=== PATIENT | male | born 1975 | race Hispanic/Latino ===

== ENCOUNTER 2024-11-05 00:47 | Day surgery (SDC) | payer OTHER, SELFPAY ==
[2023-08-14 14:06] VITALS: BMI 29.0
[2024-03-27 10:13] VITALS: BMI 29.5
[2024-07-17 09:00] VITALS: BMI 29.6
--- NOTE | 2024-08-02 12:11 | SUR.PREOP ---
Pt call today to cancel his procedure on 08/04 due to provider availability. Pt rescheduled to 11/05 at 730.
[2024-10-29 14:44] VITALS: BMI 29.6
--- OUTSIDE RECORDS SUMMARY | 2024-11-05 00:50 | XMS_ITS | Clinical Summary ---
Author Organization [facility] [employer] [facility] Address [address] [place] [id number] Care Team Providers Care Doctor Of Chiropractic Name Role Phone Lydia Cristobal MD Primary Care Provider [phone] Allergies No known active allergies Medications No known medications Active Problems No known active problems Encounters Date Type Department Care Team Description 10/07/2024 External Device Data [facility] Provider, Abstract 10/06/2024 External Device Data [facility] Provider, Abstract 10/03/2024 External Device Data [facility] Provider, Abstract 09/22/2024 External Device Data [facility] Provider, Abstract 08/20/2024 External Device Data [facility] Provider, Abstract from Last 3 Months Immunizations Immunization Administration Dates Next Due (ADACEL/BOOSTRIX)(10 YR UP) TDAP VACCINE, 0.5ML, IM 05/27/2024 INFLUENZA VACCINE QUADRIVALENT 6 MOS UP PF IM INFLUENZA VACCINE TRIVALENT SPLIT VIRUS, (6 MOS UP), 0.5ML (PF), IM 05/27/2024 Family History Medical History Relation Name Comments Diabetes Father Relation Name Status Comments Daughter 1 Alive Daughter 2 Alive Daughter 3 Alive Father Alive Mother Alive Social History Tobacco Use Types Packs/Day Years Used Date Smoking Tobacco: Never Smokeless Tobacco: Never Tobacco Cessation:Counseling Given: Not Answered Alcohol Use Standard Drinks/Week Comments Yes 8 (1 standard drink = 0.6 oz pur e alcohol) social Sex and Gender Information Value Date Recorded Sex Assigned at Not on file Legal Sex Male 3:03 PM CDT Gender Identity Not on file Sexual Orientation Not on file Last Filed Vital Signs Vital Sign Reading Time Taken Comments Blood Pressure 110/70 04/08/2024 10:41 AM CDT Pulse 70 06/19/2023 7:39 AM HOME CARE ATTENDANT Temperature 36.6 C (97.9 F) 06/19/2023 7:39 AM HOME CARE ATTENDANT Respiratory Rate - - Oxygen Saturation 98% 06/19/2023 7:39 AM HOME CARE ATTENDANT Inhaled Oxygen Concentration - - Weight 88 kg (194 lb) 04/08/2024 10:41 AM CDT Height 172.7 cm (5' 8 ) 04/08/2024 10:41 AM CDT Body Mass Index 29.5 04/08/2024 10:41 AM CDT Plan of Treatment Upcoming Encounters Date Type Department Care Team (Late st Contact Info) Description 11/25/2024 2:00 PM CDT Office Visit [facility] [place] [address] [place] [id number] Health Maintenance Due Date Last Done Comments Pre-Diabetes and Diabetes Screening 1975 HEPATITIS B VACCINES (1 of 3 - 19+ 3-dose series) 11/09/1994 COLORECTAL SCREENING 11/09/2020 Colorectal Cancer Screening 11/09/2020 FIT-DNA Q 3 years 11/09/2020 FIT/FOBT Q 1 year 11/09/2020 Flex Sig/CT Colonography Q 5 years 11/09/2020 Preventative Visit- Commercial 07/29/2024 06/19/2023 DTAP/TDAP/TD VACCINES (2 - T d or Tdap) 05/27/2034 05/27/2024 INFLUENZA VACCINE Completed 05/27/2024, 05/01/2023 PNEUMOCOCCAL VACCINE 0-49 YEARS Aged Out No longer eligible b ased on patient's age to complete this topic Insurance ALLEGIANCE OPEN ACCESS ALLEGIAN OPEN ACCESS Care Teams Doctor Of Chiropractic Relationship Specialty Start Date End Date Lydia Cristobal MD [address] [place] [address] [place] [address] PCP - General Internal Medicine 05/27/24
[2024-11-05 06:16] VITALS: BP 125/87; PULSE 78; RESP 20; TEMP 36.3; O2SAT 100; BMI 29.1
[2024-11-05] MEDS: LACTATED RINGERS 1,000 ML 150 ML IV CONT (06:19)
--- NOTE | 2024-11-05 07:31 | PM.HPGS ---
History of Present Illness History of Present Illness Consent: Risks, benefits, and alternatives have been discussed and questions answered. Patient agrees to proceed with procedure. Chief complaint: neoplasm screening Narrative: Jose M Faith is a 48 year old male here for first screening colonoscopy Review of Systems Review of Systems: All systems reviewed & are unremarkable except as noted in HPI and below PMFSH Past Medical History Medical History (Updated 11/05/24 @ 07:32 by Jose Raul Pham MD) Colon cancer screening Social History Social History Smoking status: Never smoker Alcohol intake: current Drinks per week: 7 Alcohol use details: one beer a night Substance use: never Substance use type: does not use Living arrangements: with family Spiritual care concerns: No Meds Home Medications and Allergies Home Medications ?Medication ?Instructions ?Recorded ?Confirmed ?Type No Home Medications 08/14/23 03/27/24 History Allergies Allergy/AdvReac Type Severity Reaction Status Date / Time No Known Allergies Allergy Mild Verified 11/05/24 06:15 Vital Signs Vital Signs - 24 hr 11/05/24 06:16 Temperature 97.3 F L Pulse Rate 78 Respiratory Rate 20 Blood Pressure 125/87 Pulse Oximetry 100 Oxygen Delivery Room Air Exam Const: General: comfortable and no acute distress HENMT: Face/Nose/Sinus: Normal nares present Eyes: General: appearance normal, both eyes and all related structures Neck: Neck: no JVD Resp: Auscultation: clear to auscultation bilaterally Cardio: Rate: regular rate Rhythm: regular rhythm GI: Inspection: non-distended GI Palp: Yes Soft to palpation Skin: General skin exam: normal color Neuro: Speech: normal speech Extrem: General: normal to inspection Psych: Mental Status: mental status grossly normal Assessment and Plan Assessment and plan (1) Colon cancer screening: Code(s): Z12.11 - Encounter for screening for malignant neoplasm of colon Status: Acute Assessment and Plan: colonoscopy
[2024-11-05 07:48] VITALS: BP 110/78; PULSE 77; RESP 17; O2SAT 98
[2024-11-05 07:58] VITALS: BP 109/72; PULSE 69; RESP 13; O2SAT 100
[2024-11-05 08:08] VITALS: BP 116/77; PULSE 71; RESP 16; O2SAT 100
== END 2024-11-05 08:25 | disposition home or self-care (01) ==
PROVIDERS: PCP Family Medicine; Visit Provider Internal Medicine Gastroenterology
PROC: 0DJD8ZZ Inspection of Lower Intestinal Tract, Via Natural or Artificial Opening Endoscopic (ICD-10-PCS; CPT 45378; principal; 2024-11-05 07:30)
DX: Z12.11 Encounter for screening for malignant neoplasm of colon (principal); K63.5 Polyp of colon; K57.30 Diverticulosis of large intestine without perforation or abscess without bleeding
CPT/HCPCS: 45385; 88305; J2003; J2704; J7120